=== PATIENT | female | born 1995 | race Caucasian/White ===

== ENCOUNTER 2020-11-18 17:13 | Emergency (ER) | payer MEDICAID, OTHER ==
[~2020-11-18] VITALS: Ht 157.5 cm; Wt 175.0 kg
[~2020-11-18 17:13] MED LIST: AMIT25TA9; SULF-165
[2020-11-18 17:18] VITALS: BP 120/67
[2020-11-18] MEDS ORDERED: ACETAMINOPHEN 325MG TABLET PO ONE (18:30)
[2020-11-18] MEDS ORDERED: IBUP-2029 MT (18:55)
== END 2020-11-18 19:09 | disposition home or self-care (01) ==
LOC: ER 17:13
DX: S06.0X0A Concussion without loss of consciousness, initial encounter (principal); J45.909 Unspecified asthma, uncomplicated; V43.52XA Car driver injured in collision with other type car in traffic accident, initial encounter; W22.11XA Striking against or struck by driver side automobile airbag, initial encounter; Y93.89 Activity, other specified; Y92.488 Other paved roadways as the place of occurrence of the external cause
CPT/HCPCS: 81025; 99282

== ENCOUNTER 2021-06-07 22:47 | Emergency (ER) | payer OTHER ==
[~2021-06-07] VITALS: Ht 152.4 cm; Wt 69.0 kg
[~2021-06-07 22:47] MED LIST changes: +IBUP-2029 MT
[2021-06-07 22:52] VITALS: BP 119/57
[2021-06-08] MEDS ORDERED: PREDNISONE 20MG TABLET PO ONE (00:45)
[2021-06-08 00:54] LABS: BASOPHILS % 0.4 % (0.0-2.0); EOSINOPHILS % 12.7 % (0.0-5.0); HEMOGLOBIN. 13.1 g/dL (12.0-16.0); LYMPHOCYTES % 22.5 % (20.0-50.0); MEAN CORPUSCULAR HEMOGLOBIN 26.6 pg (28.0-32.0); MEAN PLATELET VOLUME 7.6 fl (7.4-10.4); MONOCYTES % 6.1 % (2.0-8.0); NEUTROPHILS % 58.3 % (40.0-76.0); PLATELET 245 x1000/uL (130-400); RED BLOOD CELL COUNT 4.93 mill/uL (4.2-5.4); RED CELL DISTRIBUTION WIDTH 13.7 % (11.6-14.6)
[2021-06-08 01:14] LABS: CHLORIDE 107 mEq/L (98-107)
[2021-06-08] MEDS ORDERED: P20 MT (01:43)
[2021-06-08 01:59] LABS: CLARITY URINE CLOUDY (CLEAR); COLOR URINE DARK YELLOW (YELLOW); KETONES URINE TRACE (NEGATIVE); LEUKOCYTE ESTERASE URINE TRACE (NEGATIVE); NITRITE URINE NEGATIVE (NEGATIVE); OCCULT BLOOD URINE 1+ (NEGATIVE); PH URINE 5.5 (4.5-8.0); PROTEIN URINE NEGATIVE (NEGATIVE); SPECIFIC GRAVITY URINE 1.034 (1.005-1.030)
[2021-06-08] MEDS ORDERED: NITR-87 MT (02:08)
== END 2021-06-08 02:04 | disposition home or self-care (01) ==
LOC: ER 22:47
DX: R21 Rash and other nonspecific skin eruption (principal); N39.0 Urinary tract infection, site not specified; J45.909 Unspecified asthma, uncomplicated
CPT/HCPCS: 36415; 80053; 81003; 85025; 99283; J7512

== ENCOUNTER 2021-12-07 20:58 | Emergency (ER) | payer OTHER ==
[~2021-12-07] VITALS: Ht 152.4 cm; Wt 68.0 kg
[~2021-12-07 20:58] MED LIST changes: +NITR-87 MT; +P20 MT
[2021-12-07] MEDS ORDERED: KETOROLAC 30MG/ML VIAL IM ONE (22:45)
[2021-12-07 23:20] LABS: CLARITY URINE CLOUDY (CLEAR); COLOR URINE YELLOW (YELLOW); KETONES URINE TRACE (NEGATIVE); LEUKOCYTE ESTERASE URINE NEGATIVE (NEGATIVE); NITRITE URINE NEGATIVE (NEGATIVE); OCCULT BLOOD URINE TRACE (NEGATIVE); PH URINE 7.5 (4.5-8.0); PROTEIN URINE NEGATIVE (NEGATIVE); SPECIFIC GRAVITY URINE 1.023 (1.005-1.030)
[2021-12-08] MEDS ORDERED: NAP5EC MT (00:20)
[2021-12-08 00:30] VITALS: BP 110/75
== END 2021-12-08 00:52 | disposition home or self-care (01) ==
LOC: ER 20:58
DX: M54.50 Low back pain, unspecified (principal); J45.909 Unspecified asthma, uncomplicated
CPT/HCPCS: 81003; 99283; J1885

== ENCOUNTER 2024-03-30 23:09 | Emergency (ER) | payer OTHER ==
[~2024-03-30] VITALS: Ht 152.4 cm; Wt 59.0 kg
[~2024-03-30 23:09] MED LIST changes: +NAP5EC MT
[2024-03-30 23:24] VITALS: O2SAT 100
[2024-03-30 23:43] LABS: BASOPHILS % 0.5 % (0.0-2.0); EOSINOPHILS % 0.6 % (0.0-5.0); HEMATOCRIT. 44.4 % (36.0-48.0); HEMOGLOBIN. 14.7 g/dL (12.0-16.0); LYMPHOCYTES % 9.9 % (20.0-50.0); MEAN CORPUSCULAR HEMOGLOBIN 27.5 pg (28.0-32.0); MEAN CORPUSCULAR HGB CONC 33.1 g/dL (31.0-37.0); MEAN PLATELET VOLUME 8.1 fl (7.4-10.4); MONOCYTES % 8.7 % (2.0-8.0); NEUTROPHILS % 80.3 % (40.0-76.0); PLATELET 234 x1000/uL (130-400); RED BLOOD CELL COUNT 5.35 mill/uL (4.2-5.4); RED CELL DISTRIBUTION WIDTH 14.7 % (11.6-14.6); WHITE BLOOD COUNT 6.9 x1000/uL (4.5-11.0)
[2024-03-30 23:51] LABS: CLARITY URINE CLEAR (CLEAR); COLOR URINE YELLOW (YELLOW); GLUCOSE URINE NEGATIVE (NEGATIVE); KETONES URINE 4+ (NEGATIVE); LEUKOCYTE ESTERASE URINE NEGATIVE (NEGATIVE); NITRITE URINE NEGATIVE (NEGATIVE); OCCULT BLOOD URINE 1+ (NEGATIVE); PH URINE 5.5 (4.5-8.0); PROTEIN URINE 1+ (NEGATIVE); SPECIFIC GRAVITY URINE 1.025 (1.005-1.030); UROBILINOGEN URINE 0.2 E.U./dL (0.2-1.0)
[2024-03-30 23:54] LABS: CARBON DIOXIDE 12 mEq/L (21-32); CHLORIDE 106 mEq/L (98-107); POTASSIUM 3.7 mEq/L (3.5-5.1); SODIUM 136 mEq/L (136-145)
[2024-03-30 23:55] LABS: CALCIUM 9.5 mg/dL (8.7-10.4)
[2024-03-30 23:59] LABS: CREATININE 0.7 mg/dL (0.6-1.0)
[2024-03-31] LABS: GLUCOSE 61 mg/dL (70-105); UREA NITROGEN BLOOD 5 mg/dL (9-23)
[2024-03-31] MEDS ORDERED: ONDANSETRON 4MG ODT PO ONE
[2024-03-31] MEDS ORDERED: KETOROLAC 15MG/ML VIAL IM ONE
[2024-03-31 00:01] LABS: ALANINE AMINOTRANSFERASE 14 IU/L (10-49)
[2024-03-31 00:02] LABS: ALBUMIN 5.1 g/dL (3.2-4.8); ASPARTATE AMINOTRANSFERASE 22 IU/L (<34); BILIRUBIN DIRECT 0.4 mg/dL (<=3.0); BILIRUBIN TOTAL 1.2 mg/dL (0.1-1.0); PROTEIN TOTAL 8.9 g/dL (6.0-8.3)
[2024-03-31 00:42] LABS: SQUAMOUS EPITHELIAL CELL URINE 1+ /lpf (RARE/1+)
[2024-03-31 00:56] LABS: RBC URINE 0-2 /hpf (0-2); WBC URINE 0-2 /hpf (0-2)
[2024-03-31 00:57] LABS: BACTERIA URINE NONE SEEN
[2024-03-31] MEDS: ONDANSETRON 4MG ODT PO NR (01:45)
[2024-03-31] MEDS: SODIUM CHLORIDE 0.9% 1,000 ML IV ONE (02:10)
[2024-03-31 02:42] LABS: HCG SCREEN NEGATIVE
[2024-03-31] MEDS ORDERED: OMEP20CA14 MT (03:35)
[2024-03-31] MEDS ORDERED: NAPR-1176 MT (03:35)
[2024-03-31] MEDS ORDERED: ONDA4TAB50 MT (03:35)
[2024-03-31] MEDS: KETOROLAC 15MG/ML VIAL IM NR (03:43)
[2024-03-31 06:39] VITALS: BP 126/64; PULSE 91; RESP 17; TEMP 36.61404; O2SAT 98
== END 2024-03-31 06:40 | disposition home or self-care (01) ==
LOC: ER 23:09
DX: R10.13 Epigastric pain (principal); R11.0 Nausea; J45.909 Unspecified asthma, uncomplicated; Z79.899 Other long term (current) drug therapy
CPT/HCPCS: 80076; 80048; 81003; 83690; 85025; 36415; 99284; 84703; 76705; 96360; 96361; Q0162; J1885; J7030; Z7610

== ENCOUNTER 2024-05-30 01:16 | Emergency (ER) | payer OTHER ==
[~2024-05-30] VITALS: Ht 152.4 cm; Wt 50.0 kg
[~2024-05-30 01:16] MED LIST changes: +NAPR-1176 MT; +OMEP20CA14 MT; +ONDA4TAB50 MT
[2024-05-30 02:32] VITALS: O2SAT 99
[2024-05-30] MEDS: ACETAMINOPHEN 500MG TABLET PO ONE (03:02)
[2024-05-30] MEDS: PANTOPRAZOLE 40MG DR TABLET PO ONE (03:02)
[2024-05-30 04:03] LABS: BASOPHILS % 0.3 % (0.0-2.0); HEMATOCRIT. 43.3 % (36.0-48.0); LYMPHOCYTES % 20.4 % (20.0-50.0); MEAN CORPUSCULAR HEMOGLOBIN 27.4 pg (28.0-32.0); MEAN CORPUSCULAR HGB CONC 32.4 g/dL (31.0-37.0); MEAN CORPUSCULAR VOLUME 84.6 fL (81.0-99.0); MEAN PLATELET VOLUME 8.8 fl (7.4-10.4); MONOCYTES % 7.6 % (2.0-8.0); NEUTROPHILS % 69.7 % (40.0-76.0); PLATELET 228 x1000/uL (130-400); RED BLOOD CELL COUNT 5.12 mill/uL (4.2-5.4); RED CELL DISTRIBUTION WIDTH 15.9 % (11.6-14.6); WHITE BLOOD COUNT 6.1 x1000/uL (4.5-11.0)
[2024-05-30 04:25] LABS: CHLORIDE 103 mEq/L (98-107); POTASSIUM 2.9 mEq/L (3.5-5.1); SODIUM 138 mEq/L (136-145)
[2024-05-30 04:26] LABS: CARBON DIOXIDE 25 mEq/L (21-32)
[2024-05-30 04:31] LABS: CREATININE 0.6 mg/dL (0.6-1.0); GLUCOSE 80 mg/dL (70-105)
[2024-05-30 04:33] LABS: ALANINE AMINOTRANSFERASE 13 IU/L (10-49); ALBUMIN 4.8 g/dL (3.2-4.8); ASPARTATE AMINOTRANSFERASE 26 IU/L (<34); BILIRUBIN TOTAL 1.2 mg/dL (0.1-1.0)
[2024-05-30 04:34] LABS: PROTEIN TOTAL 8.7 g/dL (6.0-8.3)
[2024-05-30 04:38] LABS: UREA NITROGEN BLOOD < 5 mg/dL (9-23)
[2024-05-30 04:39] LABS: HCG SCREEN NEGATIVE
[2024-05-30] MEDS: POTASSIUM CHLORIDE 20MEQ TABLET SR PO ONE (04:45)
[2024-05-30] MEDS ORDERED: SODIUM CHLORIDE 0.9% 1,000 ML IV ONE (05:30)
[2024-05-30] MEDS ORDERED: KCL 10MEQ/50ML PREMIX 50 ML IV ONE (05:30)
[2024-05-30 07:27] VITALS: BP 109/69; PULSE 99; RESP 18; TEMP 36.89184; O2SAT 99
[2024-05-30] MEDS ORDERED: KETOROLAC 15MG/ML VIAL IV PRN (08:15)
[2024-05-30] MEDS ORDERED: IPRATROPIUM/ALBUTEROL 0.5-3(2.5)MG/3ML NEB NEB PRN (08:15)
[2024-05-30] MEDS ORDERED: GUAIFENESIN 200MG/10ML SUGAR FREE UDC PO PRN (08:15)
[2024-05-30] MEDS ORDERED: CLONIDINE 0.1MG TABLET PO PRN (08:15)
[2024-05-30] MEDS ORDERED: ONDANSETRON HCL 4MG/2ML INJ IV PRN (08:15)
[2024-05-30] MEDS ORDERED: MAGNESIUM/ALUMINUM HYDROXIDE/SIMETHICONE 30ML UDC PO PRN (08:15)
[2024-05-30] MEDS ORDERED: ACETAMINOPHEN 325MG TABLET PO PRN ×2 (08:15)
[2024-05-30] MEDS ORDERED: DOCUSATE SODIUM 100MG CAPSULE PO PRN (08:15)
[2024-05-30] MEDS ORDERED: KCL 20MEQ/100ML PREMIX 100 ML IV SCH (08:27)
[2024-05-30] MEDS ORDERED: LACTATED RINGERS 1,000 ML IV SCH (08:29)
[2024-05-30] MEDS ORDERED: NITROGLYCERIN 0.4MG TABLET SL SL PRN (08:45)
[2024-05-30] MEDS ORDERED: PANTOPRAZOLE SODIUM 40 MG/VIAL IV SCH (09:00)
[2024-05-30 12:35] LABS: FOLIC ACID (FOLATE) SERUM 12.74 ng/mL (>5.38)
[2024-05-30 13:00] LABS: VITAMIN B12 SERUM 3450 pg/mL (211-911)
[2024-05-30] MEDS ORDERED: ZOLPIDEM TARTRATE 5MG TABLET PO PRN (21:00)
== END 2024-05-30 08:05 | disposition short-term general hospital (02) ==
LOC: ER 01:28
DX: K92.1 Melena (principal); E87.6 Hypokalemia; J45.909 Unspecified asthma, uncomplicated; Z79.899 Other long term (current) drug therapy
CPT/HCPCS: 99285; 74176; 80053; 82607; 82746; 84703; 83690; 85025; 36415; J7030; J3480